=== PATIENT | male | born 1955 | race Caucasian/White ===

== ENCOUNTER 2016-08-28 12:48 | Emergency (ER) | payer MEDICARE ==
[2016-08-28] MEDS ORDERED: KETOROLAC 30 MG/ML VIAL (J1885) As Ordered ONE (15:51)
[2016-08-28 16:10] LABS: BASO # 0.1 K/mm3 (0.0-0.2); BASO % 1.4 % (0.0-1.0); EOS # 0.1 K/mm3 (0.0-0.50); EOS % 1.2 % (0.0-3.0); LARGE UNSTAINED CELL # 0.2 K/mm3 (0.0-0.4); LARGE UNSTAINED CELL % 1.9 % (0.0-4.0); LYMPH # 2.5 K/mm3 (1.5-4.5); LYMPH % 25.4 % (24.0-44.0); MEAN CORPUSCULAR HEMOGLOBIN 31.8 pg (27.0-33.0); MEAN CORPUSCULAR VOLUME 93.4 fl (80.0-96.0); MONO # 0.6 K/mm3 (0.0-0.8); MONO % 6.4 % (0.0-5.0); NEUTROPHILS # 5.7 K/mm3 (1.8-7.7); NEUTROPHILS % 63.7 % (36.0-66.0); PLATELET COUNT, AUTOMATED 270 k/mm3 (150-450); RED CELL DISTRIBUTION WIDTH 12.9 % (11.5-14.5)
[2016-08-28 16:29] LABS: ALBUMIN 4.2 GM/DL (3.2-5.2); ALBUMIN/GLOBULIN RATIO 1.45 (1.00-1.93); ALKALINE PHOSPHATASE 61 U/L (45-117); ALT/SGPT 42 U/L (12-78); ANION GAP 8 MEQ/L (8-16); AST/SGOT 16 U/L (15-37); BILIRUBIN,TOTAL 0.4 MG/DL (0.2-1.0); BLOOD UREA NITROGEN 24 MG/DL (7-18); CALCIUM LEVEL 9.2 MG/DL (8.8-10.2); CARBON DIOXIDE LEVEL 31 MEQ/L (21-32); CHLORIDE LEVEL 102 MEQ/L (98-107); CREATININE FOR GFR 0.93 MG/DL (0.70-1.30); GLOMERULAR FILTRATION RATE > 60.0 (>49); GLUCOSE, FASTING 102 MG/DL (80-110); POTASSIUM SERUM 4.1 MEQ/L (3.5-5.1); SODIUM LEVEL 141 MEQ/L (136-145); TOTAL PROTEIN 7.1 GM/DL (6.4-8.2)
--- NOTE | 2016-08-28 16:53 | REP ---
CT abdomen and pelvis without IV or oral contrast: Renal stone protocol. History: Left flank pain. Diverticulitis left lower quadrant pain. Comparison CT study: 08/29/2015. CT findings: The lung bases are clear. There is no evidence of pleural effusion. Preliminary rn integrated radiograph demonstrates a normal bowel gas pattern. There are clips in right upper quadrant. On axial CT images, the liver is normal in size homogeneous in texture. There are some dystrophic calcifications in the anterior aspect of the spleen unchanged from comparison study. No significant splenic lesion is seen. Gallbladder is surgically absent. No pancreatic abnormality is seen. No adrenal lesion is observed. The kidneys are morphologically intact. No evidence of intrarenal calculus or hydronephrosis on either side. No retroperitoneal mass or adenopathy is seen. Normal caliber aorta is noted. A normal appendix is seen posterior to the cecum. Small and large intestinal bowel loops are normal in the upper abdomen. Pelvic CT images show mild diverticulosis of the distal descending colon. There is no CT evidence of diverticulitis. There is some vas deferens calcification. This may correlate with diabetes. Prostate, seminal vesicles, and urinary bladder are unremarkable. No abdominal wall defect is seen. Bone window settings show no bony destructive lesion. Impression: Mild left colonic diverticulosis. Postcholecystectomy. No acute intra-abdominal abnormality. No urinary tract calculus or hydronephrosis seen. Normal appendix seen. Signed by Danie Willams MD 08/28/2016 06:38 P
--- NOTE | 2016-08-28 17:17 | EDDOCDS ---
Nurse's Notes [facility] Name: Ac Warren Iii Age: 61 yrs Sex: Male : 1955 Arrival Date: 08/28/2016 Time: 12:48 Bed I5 / M5 Private MD: [facility], [place] Diagnosis: Low back pain;Left lower quadrant abdominal tenderness Presentation: 08/28 12:54 Presenting complaint: Patient states: Left low back pain began a week ago "went away" mlb1 for two days pain began again now radiating to left flank. Acute neurological deficits are not present. Mechanism of Injury: No Mechanism of Injury. Adult Sepsis Screening: The patient does not have new or worsening altered mentation. Patient's respiratory rate is less than 22. Systolic blood pressure is greater than 100. Patient has a qSOFA score of 0- Negative Sepsis Screen. Suicide/Homicide risk assessment- the patient denies having any suicidal and/or homicidal ideations and does not present with any other emotional, behavioral or mental health complaints. Status: Patient is not a service learning coordinator or dependent. Transition of care: patient was not received from another setting of care. 12:54 Acuity: DOLLY Level 3 mlb1 12:54 Method Of Arrival: Walkin/Carried/Asstd mlb1 Triage Assessment: 12:56 General: Appears in no apparent distress, Behavior is appropriate for age, cooperative. mlb1 Pain: Location: left low back Pain currently is 7 out of 10 on a pain scale. Pain radiates to left flank. HIV screening NA for this visit Offered previously. Historical: - Allergies: no known allergies; - Home Meds: 1. metformin 500 mg Oral tr24 0.5 tab twice a day 2. lisinopril 5 mg Oral tab 0.5 tab once daily 3. Furosemide 10mg Oral once daily 4. oxycodone 5 mg Oral tab three times a day - PMHx: Chronic Back pain; Diabetes - NIDDM: controlled; Gout; Hypertension; - PSHx: Correction of Bowel obstruction; Cholecystectomy (2003); Exploratory lap; Bowel resection; - Social history: Smoking status: Patient states former smoker of tobacco. No barriers to communication noted, The patient speaks fluent Finnish, Speaks appropriately for age. - Family history: Not pertinent. - : The pt / caregiver states he / she is not on anticoagulants. Home medication list is obtained from the patient. - Exposure Risk Screening:: None identified. Screenin:14 Screening information is obtained from the patient. Fall risk: No risks identified. k Assistance ADL's: requires no assistance with activities of daily living. Abuse/DV Screen: The patient / caregiver reports he/she is: not in a situation that causes fear, pain or injury. Nutritional screening: No deficits noted. Advance Directives: Currently, there is no health care proxy. There is no active DNR order. There is no living will. There is no Power of [employer] Logger. Advance directive information has not previously been placed in an [facility] medical record. home support is adequate. Assessment: 14:54 General: Appears in no apparent distress, well nourished, well groomed, Behavior is ttb appropriate for age, cooperative, pleasant. Neurological: Level of Consciousness is awake, alert. 15:59 General: Appears in no apparent distress, comfortable, Behavior is appropriate for age, ead cooperative. Pain: Location: left flank and left low back Pain currently is 5 out of 10 on a pain scale. Respiratory: Airway is patent Respiratory effort is even, unlabored. GI: Abdomen is obese, Bowel sounds present X 4 quads. Denies nausea, vomiting, pain. Derm: Skin is pink, warm & dry. Musculoskeletal: Reports pain in left flank and back and left low back. 17:14 General: Appears without pain. receptive to discharge. [facility] Vital Signs: 12:50 BP 111 / 66; Pulse 87; Resp 18 S; Temp 96.5(O); Pulse Ox 98% on R/A; Weight 97.07 kg gr2 (R); Height 5 ft. 10 in. (177.80 cm) (R); Pain 7/10; 17:03 BP 119 / 68; Pulse 72; Resp 18; Temp 98.5(TE); Pulse Ox 97% on R/A; Pain 3/10; nb2 12:50 Body Mass Index 30.71 (97.07 kg, 177.80 cm) 2 Vitals: 12:50 Log In Time: August 28, 2016 at 12:50. 2 ED Course: 12:49 Patient visited by Sujatha Aguirre. gr2 12:49 [facility], [place] is Private Physician. gr2 12:49 Patient moved to Waiting gr2 12:53 Patient visited by Sujatha Aguirre. gr2 12:53 Patient visited by Tre Ruff, TEZ. mlb1 12:53 Patient moved to Pre RCE gr2 12:55 Triage Initiated mlb1 12:57 Patient visited by Tre Ruff, TEZ. mlb1 13:48 Urine Culture Sent. cmb 13:48 Urinalysis Sent. cmb 14:49 Patient moved to Triage 3 ttb 14:53 Patient visited by Shanna Chavira RN. ttb 14:54 Patient visited by Shanna Chavira RN. ttb 14:56 [facility]. btw 14:56 Claudia Zelaya MD is Attending Physician. btw 15:11 Patient visited by Mathew Burroughs PA. btw 15:26 Patient moved to I4 / M4 ttb 15:39 [facility] Payment Agreement was scanned into [employer] and attached to record. lg 15:44 Patient name changed from Ac\\S\\W\\S\\Warren\\S\\ to Ac\\S\\W\\S\\Warren Iii. EDMS 15:52 CBC with Diff Sent. ead 15:52 Complete Comphrensive Metabolic Sent. ead 15:52 Inserted saline lock: 20 gauge in right antecubital area and blood collected. The ead patient tolerated the procedure well. 15:58 Patient visited by Dilia Randhawa RN. ead 16:18 Patient moved to I5 / M5 jmk 16:59 Patient visited by Dilia Randhawa RN. ead 16:59 [facility] is Referral Physician. btw 17:03 Patient visited by Zulma Mccabe. nb2 17:13 CT ABD & PELVIS: No Contrast Returned. EDMS 17:14 The patient / caregiver is instructed regarding the plan of care and ED course. jmk 17:14 Discontinued lock intact, bleeding controlled, pressure dressing applied, No jmk redness/swelling at site. No procedures done that require assistance. Administered Medications: 15:57 Drug: ketorolac 15 mg [ketorolac 30 mg/mL (1 mL) injection solution (0.5 mL)] Route: ead IVP; Site: right antecubital; 16:18 Follow up: Response: Pain is decreased jmk Order Results: Lab Order: Urinalysis; SPEC'M 08/28/16 13:46 Test: APPEARANCE, URINE; Value: CLEAR; Range: CLEAR; Status: F Test: COLOR, URINE; Value: YELLOW; Range: YELLOW; Status: F Test: PH,URINE; Value: 5.0; Range: 5.0-9.0; Units: UNITS; Status: F Test: SPECIFIC GRAVITY URINE AUTO; Value: 1.016; Range: 1.002-1.035; Status: F Test: PROTEIN, URINE AUTO; Value: NEGATIVE; Range: NEGATIVE; Units: mg/dL; Status: F Test: GLUCOSE, URINE (UA) AUTO; Value: NEGATIVE; Range: NEGATIVE; Units: mg/dL; Status: F Test: KETONE, URINE AUTO; Value: NEGATIVE; Range: NEGATIVE; Units: mg/dL; Status: F Test: UROBILINOGEN, URINE AUTO; Value: 0.2; Range: 0.0-2.0; Units: mg/dL; Status: F Test: BILIRUBIN, URINE AUTO; Value: NEGATIVE; Range: NEGATIVE; Status: F Test: NITRITE, URINE AUTO; Value: NEGATIVE; Range: NEGATIVE; Status: F Test: LEUKOCYTE ESTERASE, URINE AUTO; Value: NEGATIVE; Range: NEGATIVE; Status: F Test: BLOOD, URINE BLOOD; Value: NEGATIVE; Range: NEGATIVE; Status: F Test: WBC, URINE AUTO; Value: 0; Range: 0-3; Units: /HPF; Status: F Test: RBC, URINE AUTO; Value: 1; Range: 0-3; Units: /HPF; Status: F Test: BACTERIA, URINE AUTO; Value: NEGATIVE; Range: NEGATIVE; Status: F Test: SQUAMOUS EPITHELIAL CELL UR AU; Value: 0; Range: 0-6; Units: /HPF; Status: F Test: MUCUS, URINE; Value: SMALL; Range: NEGATIVE; Status: F Test: HYALINE CAST, URINE AUTO; Value: 3; Range: 0-1; Units: /LPF; Status: F Lab Order: CBC with Diff; SPEC'M 08/28/16 15:50 Test: WHITE BLOOD COUNT; Value: 9.0; Range: 4.0-10.0; Units: K/mm3; Status: F Test: RED BLOOD COUNT; Value: 5.26; Range: 4.30-6.10; Units: M/mm3; Status: F Test: HEMOGLOBIN; Value: 16.7; Range: 14.0-18.0; Units: g/dl; Status: F Test: HEMATOCRIT; Value: 49.1; Range: 42.0-52.0; Units: %; Status: F Test: MEAN CORPUSCULAR VOLUME; Value: 93.4; Range: 80.0-96.0; Units: fl; Status: F Test: MEAN CORPUSCULAR HEMOGLOBIN; Value: 31.8; Range: 27.0-33.0; Units: pg; Status: F Test: MEAN CORPUSCULAR HGB CONC; Value: 34.0; Range: 32.0-36.5; Units: g/dl; Status: F Test: RED CELL DISTRIBUTION WIDTH; Value: 12.9; Range: 11.5-14.5; Units: %; Status: F Test: PLATELET COUNT, AUTOMATED; Value: 270; Range: 150-450; Units: k/mm3; Status: F Test: NEUTROPHILS %; Value: 63.7; Range: 36.0-66.0; Units: %; Status: F Test: LYMPH %; Value: 25.4; Range: 24.0-44.0; Units: %; Status: F Test: MONO %; Value: 6.4; Range: 0.0-5.0; Abnormal: Above high normal; Units: %; Status: F Test: EOS %; Value: 1.2; Range: 0.0-3.0; Units: %; Status: F Test: BASO %; Value: 1.4; Range: 0.0-1.0; Abnormal: Above high normal; Units: %; Status: F Test: LARGE UNSTAINED CELL %; Value: 1.9; Range: 0.0-4.0; Units: %; Status: F Test: NEUTROPHILS #; Value: 5.7; Range: 1.8-7.7; Units: K/mm3; Status: F Test: LYMPH #; Value: 2.5; Range: 1.5-4.5; Units: K/mm3; Status: F Test: MONO #; Value: 0.6; Range: 0.0-0.8; Units: K/mm3; Status: F Test: EOS #; Value: 0.1; Range: 0.0-0.50; Units: K/mm3; Status: F Test: BASO #; Value: 0.1; Range: 0.0-0.2; Units: K/mm3; Status: F Test: LARGE UNSTAINED CELL #; Value: 0.2; Range: 0.0-0.4; Units: K/mm3; Status: F Lab Order: Complete Comphrensive Metabolic; SPEC'M 08/28/16 15:50 Test: GLUCOSE, FASTING; Value: 102; Range: 80-110; Units: MG/DL; Status: F Test: BLOOD UREA NITROGEN; Value: 24; Range: 7-18; Abnormal: Above high normal; Units: MG/DL; Status: F Test: CREATININE FOR GFR; Value: 0.93; Range: 0.70-1.30; Units: MG/DL; Status: F Test: GLOMERULAR FILTRATION RATE; Value: > 60.0; Range: >49; Status: F Test: SODIUM LEVEL; Value: 141; Range: 136-145; Units: MEQ/L; Status: F Test: POTASSIUM SERUM; Value: 4.1; Range: 3.5-5.1; Units: MEQ/L; Status: F Test: CHLORIDE LEVEL; Value: 102; Range: 98-107; Units: MEQ/L; Status: F Test: CARBON DIOXIDE LEVEL; Value: 31; Range: 21-32; Units: MEQ/L; Status: F Test: ANION GAP; Value: 8; Range: 8-16; Units: MEQ/L; Status: F Test: CALCIUM LEVEL; Value: 9.2; Range: 8.8-10.2; Units: MG/DL; Status: F Test: AST/SGOT; Value: 16; Range: 15-37; Units: U/L; Status: F Test: ALT/SGPT; Value: 42; Range: 12-78; Units: U/L; Status: F Test: ALKALINE PHOSPHATASE; Value: 61; Range: 45-117; Units: U/L; Status: F Test: BILIRUBIN,TOTAL; Value: 0.4; Range: 0.2-1.0; Units: MG/DL; Status: F Test: TOTAL PROTEIN; Value: 7.1; Range: 6.4-8.2; Units: GM/DL; Status: F Test: ALBUMIN; Value: 4.2; Range: 3.2-5.2; Units: GM/DL; Status: F Test: ALBUMIN/GLOBULIN RATIO; Value: 1.45; Range: 1.00-1.93; Status: F Test Note: ; Units are mL/min/1.73 m2 Chronic Kidney Disease Staging per NKF: Stage I & II GFR >=60 Normal to Mildly Decreased Stage III GFR 30-59 Moderately Decreased Stage IV GFR 15-29 Severely Decreased Stage V GFR <15 Very Little GFR Left ESRD GFR <15 on JACQUARD FIXER Radiology Order: CT ABD & PELVIS: No Contrast Test: CT ABD & PELVIS: No Contrast REASON FOR EXAMINATION: left FLANK PAIN;Diverticulitis/LLQ Pain; CT abdomen and pelvis without IV or oral contrast: Renal stone protocol.; ; History: Left flank pain. Diverticulitis left lower quadrant pain.; ; Comparison CT study: 08/29/2015.; ; CT findings: The lung bases are clear. There is no evidence of pleural; effusion. Preliminary head inspector and center marker radiograph demonstrates a normal bowel gas pattern.; There are clips in right upper quadrant.; ; On axial CT images, the liver is normal in size homogeneous in texture. There; are some dystrophic calcifications in the anterior aspect of the spleen unchanged; from comparison study. No significant splenic lesion is seen. Gallbladder is; surgically absent. No pancreatic abnormality is seen. No adrenal lesion is; observed. The kidneys are morphologically intact. No evidence of intrarenal; calculus or hydronephrosis on either side. No retroperitoneal mass or adenopathy; is seen. Normal caliber aorta is noted. A normal appendix is seen posterior to; the cecum. Small and large intestinal bowel loops are normal in the upper; abdomen.; ; Pelvic CT images show mild diverticulosis of the distal descending colon. There; is no CT evidence of diverticulitis. There is some vas deferens calcification.; This may correlate with diabetes. Prostate, seminal vesicles, and urinary; bladder are unremarkable. No abdominal wall defect is seen. Bone window; settings show no bony destructive lesion.; ; Impression:; ; Mild left colonic diverticulosis. Postcholecystectomy. No acute intra-abdominal; abnormality. No urinary tract calculus or hydronephrosis seen. Normal appendix; seen.; ; ; ; ; Unreviewed; Outcome: 16:59 Discharge ordered by Provider. btw 17:14 Discharge Assessment: Patient awake, alert and oriented x 3. No cognitive and/or k functional deficits noted. Patient verbalized understanding of disposition instructions. patient administered narcotics - no. The following High Risk Discharge criteria are identified: None. Discharged to home ambulatory. Condition: good. Discharge instructions given to patient, Instructed on discharge instructions, follow up and referral plans. medication usage, no driving heavy equipment, Demonstrated understanding of instructions, medications, Prescriptions given X 2. No special radiology studies were completed. Property :Personal belongings accompany Pt. 17:16 Patient left the ED. [facility] Signatures: Dispatcher [employer] EDMS Fidel Watts,RN RN Jarvis Shen, Tre Guerrero lg RN RN mlb1 Mathew Burroughs PA PA btw Maricarmen Maloney Teresa, RN RN Sujatha Lainez2 Dilia RandhawaRN RN Zulma Hall nb2 BELKIS
--- NOTE | 2016-08-28 17:17 | EDDOCDS ---
Physician Documentation [facility] Name: Ac Warren Iii Age: 61 yrs Sex: Male : 1955 Arrival Date: 08/28/2016 Time: 12:48 Bed I5 / M5 Private MD: [facility] Disposition: 08/28/16 16:59 Discharged to Home/Self Care. Impression: Low back pain, Left lower quadrant abdominal tenderness. - Condition is Stable. - Discharge Instructions: Abdominal Pain, Adult, [id number], Back Pain, Adult, [id number]. - Prescriptions for Robaxin- 750 750 mg Oral Tablet - take 1 tablet by ORAL route every 6 hours As needed; 40 tablet. etodolac 200 mg Oral Capsule - take 1 capsule by ORAL route 3 times per day; 30 capsule. - Medication Reconciliation, Local Pharmacy Hours form. - Follow up: [facility]; When: Call to arrange an appointment; Reason: Further diagnostic work-up, Recheck today's complaints, Continuance of care. Follow up: Emergency Department; When: As soon as possible; Reason: Worsening of conditions. - Problem is new. - Symptoms are unchanged. Historical: - Allergies: no known allergies; - Home Meds: 1. metformin 500 mg Oral tr24 0.5 tab twice a day 2. lisinopril 5 mg Oral tab 0.5 tab once daily 3. Furosemide 10mg Oral once daily 4. oxycodone 5 mg Oral tab three times a day - PMHx: Chronic Back pain; Diabetes - NIDDM: controlled; Gout; Hypertension; - PSHx: Correction of Bowel obstruction; Cholecystectomy (2003); Exploratory lap; Bowel resection; - Social history: Smoking status: Patient states former smoker of tobacco. No barriers to communication noted, The patient speaks fluent French, Speaks appropriately for age. - Family history: Not pertinent. - : The pt / caregiver states he / she is not on anticoagulants. Home medication list is obtained from the patient. - Exposure Risk Screening:: None identified. Vital Signs: 08/28 12:50 BP 111 / 66; Pulse 87; Resp 18 S; Temp 96.5(O); Pulse Ox 98% on R/A; Weight 97.07 kg / gr2 214 lbs (R); Height 5 ft. 10 in. (177.80 cm) (R); Pain 7/10; 17:03 BP 119 / 68; Pulse 72; Resp 18; Temp 98.5(TE); Pulse Ox 97% on R/A; Pain 3/10; nb2 12:50 Body Mass Index 30.71 (97.07 kg, 177.80 cm) gr2 MDM: 13:44 Urinalysis Ordered. EDMS 13:44 Urine Culture Ordered. EDMS 15:18 Urinalysis Reviewed. btw 15:25 IV Saline Lock ordered. btw 15:25 ketorolac 15 mg IVP once ordered. btw 15:26 CBC with Diff Ordered. EDMS 15:26 Complete Comphrensive Metabolic Ordered. EDMS 15:26 CT ABD & PELVIS: No Contrast Ordered. EDMS 15:31 Financial registration complete. lg 15:39 [facility] Payment Agreement was scanned into [employer] and attached to record. lg 16:35 CBC with Diff Reviewed. btw 16:35 Complete Comphrensive Metabolic Reviewed. btw Administered Medications: 15:57 Drug: ketorolac 15 mg [ketorolac 30 mg/mL (1 mL) injection solution (0.5 mL)] Route: ead IVP; Site: right antecubital; 16:18 Follow up: Response: Pain is decreased vaughn Signatures: Dispatcher [employer] EDMS Fidel Watts,RN RN Jarvis Shen, Reg Reg lg Tre Ruff RN RN mlb1 Mathew Burroughs PA PA btw Dilia Randhawa RN RN luis a The chart was reviewed and I authenticate all verbal orders and agree with the evaluation and treatment provided.Attachments: 15:39 [facility] Payment Agreement lg MTDD
--- NOTE | 2016-08-30 18:17 | EDDOCDS ---
Physician Documentation [facility] Name: Ac Warren Iii Age: 61 yrs Sex: Male : 1955 Arrival Date: 08/28/2016 Time: 12:48 Bed I5 / M5 Private MD: [facility] Disposition: 08/28/16 16:59 Discharged to Home/Self Care. Impression: Low back pain, Left lower quadrant abdominal tenderness. - Condition is Stable. - Discharge Instructions: Abdominal Pain, Adult, [id number], Back Pain, Adult, [id number]. - Prescriptions for Robaxin- 750 750 mg Oral Tablet - take 1 tablet by ORAL route every 6 hours As needed; 40 tablet. etodolac 200 mg Oral Capsule - take 1 capsule by ORAL route 3 times per day; 30 capsule. - Medication Reconciliation, Local Pharmacy Hours form. - Follow up: [facility]; When: Call to arrange an appointment; Reason: Further diagnostic work-up, Recheck today's complaints, Continuance of care. Follow up: Emergency Department; When: As soon as possible; Reason: Worsening of conditions. - Problem is new. - Symptoms are unchanged. Historical: - Allergies: no known allergies; - Home Meds: 1. metformin 500 mg Oral tr24 0.5 tab twice a day 2. lisinopril 5 mg Oral tab 0.5 tab once daily 3. Furosemide 10mg Oral once daily 4. oxycodone 5 mg Oral tab three times a day - PMHx: Chronic Back pain; Diabetes - NIDDM: controlled; Gout; Hypertension; - PSHx: Correction of Bowel obstruction; Cholecystectomy (2003); Exploratory lap; Bowel resection; - Social history: Smoking status: Patient states former smoker of tobacco. No barriers to communication noted, The patient speaks fluent Welsh, Speaks appropriately for age. - Family history: Not pertinent. - : The pt / caregiver states he / she is not on anticoagulants. Home medication list is obtained from the patient. - Exposure Risk Screening:: None identified. Vital Signs: 08/28 12:50 BP 111 / 66; Pulse 87; Resp 18 S; Temp 96.5(O); Pulse Ox 98% on R/A; Weight 97.07 kg / gr2 214 lbs (R); Height 5 ft. 10 in. (177.80 cm) (R); Pain 7/10; 17:03 BP 119 / 68; Pulse 72; Resp 18; Temp 98.5(TE); Pulse Ox 97% on R/A; Pain 3/10; nb2 12:50 Body Mass Index 30.71 (97.07 kg, 177.80 cm) gr2 MDM: 13:44 Urinalysis Ordered. EDMS 13:44 Urine Culture Ordered. EDMS 15:18 Urinalysis Reviewed. btw 15:25 IV Saline Lock ordered. btw 15:25 ketorolac 15 mg IVP once ordered. btw 15:26 CBC with Diff Ordered. EDMS 15:26 Complete Comphrensive Metabolic Ordered. EDMS 15:26 CT ABD & PELVIS: No Contrast Ordered. EDMS 15:31 Financial registration complete. lg 15:39 [facility] Payment Agreement was scanned into [employer] and attached to record. lg 16:35 CBC with Diff Reviewed. btw 16:35 Complete Comphrensive Metabolic Reviewed. bt 08/29 10:09 T-Sheet-- Draft Copy was scanned into [employer] and attached to record. gb Administered Medications: 08/28 15:57 Drug: ketorolac 15 mg [ketorolac 30 mg/mL (1 mL) injection solution (0.5 mL)] Route: ead IVP; Site: right antecubital; 16:18 Follow up: Response: Pain is decreased vaughn Signatures: Dispatcher [employer] EDMS Fidel Watts RN RN jmCatina Del Castillo, Reg Reg gb Jarvis Villalobos, Reg Reg lg Tre Ruff RN RN mlb1 [place], Brandon, PA PA btw Dilia Randhawa,TEZ gunn The chart was reviewed and I authenticate all verbal orders and agree with the evaluation and treatment provided.Attachments: 15:39 [facility] Payment Agreement lg 08/29 10:09 T-Sheet-- Draft Copy gb Chart Complete MTDD
--- NOTE | 2016-08-30 18:17 | EDDOCDS ---
Physician Documentation [facility] Name: Ac Warren Iii Age: 61 yrs Sex: Male : 1955 Arrival Date: 08/28/2016 Time: 12:48 Bed I5 / M5 Private MD: [facility] Disposition: 08/28/16 16:59 Discharged to Home/Self Care. Impression: Low back pain, Left lower quadrant abdominal tenderness. - Condition is Stable. - Discharge Instructions: Abdominal Pain, Adult, Hxqs-of-Hfju, Back Pain, Adult, Okzi-lu-Nbrg. - Prescriptions for Robaxin- 750 750 mg Oral Tablet - take 1 tablet by ORAL route every 6 hours As needed; 40 tablet. etodolac 200 mg Oral Capsule - take 1 capsule by ORAL route 3 times per day; 30 capsule. - Medication Reconciliation, Local Pharmacy Hours form. - Follow up: [facility]; When: Call to arrange an appointment; Reason: Further diagnostic work-up, Recheck today's complaints, Continuance of care. Follow up: Emergency Department; When: As soon as possible; Reason: Worsening of conditions. - Problem is new. - Symptoms are unchanged. Historical: - Allergies: no known allergies; - Home Meds: 1. metformin 500 mg Oral tr24 0.5 tab twice a day 2. lisinopril 5 mg Oral tab 0.5 tab once daily 3. Furosemide 10mg Oral once daily 4. oxycodone 5 mg Oral tab three times a day - PMHx: Chronic Back pain; Diabetes - NIDDM: controlled; Gout; Hypertension; - PSHx: Correction of Bowel obstruction; Cholecystectomy (2003); Exploratory lap; Bowel resection; - Social history: Smoking status: Patient states former smoker of tobacco. No barriers to communication noted, The patient speaks fluent Maori, Speaks appropriately for age. - Family history: Not pertinent. - : The pt / caregiver states he / she is not on anticoagulants. Home medication list is obtained from the patient. - Exposure Risk Screening:: None identified. Vital Signs: 08/28 12:50 BP 111 / 66; Pulse 87; Resp 18 S; Temp 96.5(O); Pulse Ox 98% on R/A; Weight 97.07 kg / gr2 214 lbs (R); Height 5 ft. 10 in. (177.80 cm) (R); Pain 7/10; 17:03 BP 119 / 68; Pulse 72; Resp 18; Temp 98.5(TE); Pulse Ox 97% on R/A; Pain 3/10; nb2 12:50 Body Mass Index 30.71 (97.07 kg, 177.80 cm) gr2 MDM: 13:44 Urinalysis Ordered. EDMS 13:44 Urine Culture Ordered. EDMS 15:18 Urinalysis Reviewed. btw 15:25 IV Saline Lock ordered. btw 15:25 ketorolac 15 mg IVP once ordered. btw 15:26 CBC with Diff Ordered. EDMS 15:26 Complete Comphrensive Metabolic Ordered. EDMS 15:26 CT ABD & PELVIS: No Contrast Ordered. EDMS 15:31 Financial registration complete. lg 15:39 [facility] Payment Agreement was scanned into [employer] and attached to record. lg 16:35 CBC with Diff Reviewed. btw 16:35 Complete Comphrensive Metabolic Reviewed. bt 08/29 10:09 T-Sheet-- Draft Copy was scanned into [employer] and attached to record. gb Administered Medications: 08/28 15:57 Drug: ketorolac 15 mg [ketorolac 30 mg/mL (1 mL) injection solution (0.5 mL)] Route: ead IVP; Site: right antecubital; 16:18 Follow up: Response: Pain is decreased vaughn Signatures: Dispatcher MedHost EDMS Fidel Watts RN RN jmCatina Del Castillo, Reg Reg gb Jarvis Villalobos, Reg Reg lg Tre Ruff RN RN mlb1 Wolfenden, Brandon, PA PA btw Dilia Randhawa,TEZ gunn The chart was reviewed and I authenticate all verbal orders and agree with the evaluation and treatment provided.Attachments: 15:39 [facility] Payment Agreement lg 08/29 10:09 T-Sheet-- Draft Copy gb Chart Complete MTDD
--- NOTE | 2016-08-30 18:17 | EDDOCDS ---
Nurse's Notes [facility] Name: Ac Warren Iii Age: 61 yrs Sex: Male : 1955 Arrival Date: 08/28/2016 Time: 12:48 Bed I5 / M5 Private MD: [facility] Diagnosis: Low back pain;Left lower quadrant abdominal tenderness Presentation: 08/28 12:54 Presenting complaint: Patient states: Left low back pain began a week ago "went away" mlb1 for two days pain began again now radiating to left flank. Acute neurological deficits are not present. Mechanism of Injury: No Mechanism of Injury. Adult Sepsis Screening: The patient does not have new or worsening altered mentation. Patient's respiratory rate is less than 22. Systolic blood pressure is greater than 100. Patient has a qSOFA score of 0- Negative Sepsis Screen. Suicide/Homicide risk assessment- the patient denies having any suicidal and/or homicidal ideations and does not present with any other emotional, behavioral or mental health complaints. Status: Patient is not a home service consultant or dependent. Transition of care: patient was not received from another setting of care. 12:54 Acuity: DOLLY Level 3 mlb1 12:54 Method Of Arrival: Walkin/Carried/Asstd mlb1 Triage Assessment: 12:56 General: Appears in no apparent distress, Behavior is appropriate for age, cooperative. mlb1 Pain: Location: left low back Pain currently is 7 out of 10 on a pain scale. Pain radiates to left flank. HIV screening NA for this visit Offered previously. Historical: - Allergies: no known allergies; - Home Meds: 1. metformin 500 mg Oral tr24 0.5 tab twice a day 2. lisinopril 5 mg Oral tab 0.5 tab once daily 3. Furosemide 10mg Oral once daily 4. oxycodone 5 mg Oral tab three times a day - PMHx: Chronic Back pain; Diabetes - NIDDM: controlled; Gout; Hypertension; - PSHx: Correction of Bowel obstruction; Cholecystectomy (2003); Exploratory lap; Bowel resection; - Social history: Smoking status: Patient states former smoker of tobacco. No barriers to communication noted, The patient speaks fluent Bermudian, Speaks appropriately for age. - Family history: Not pertinent. - : The pt / caregiver states he / she is not on anticoagulants. Home medication list is obtained from the patient. - Exposure Risk Screening:: None identified. Screenin:14 Screening information is obtained from the patient. Fall risk: No risks identified. k Assistance ADL's: requires no assistance with activities of daily living. Abuse/DV Screen: The patient / caregiver reports he/she is: not in a situation that causes fear, pain or injury. Nutritional screening: No deficits noted. Advance Directives: Currently, there is no health care proxy. There is no active DNR order. There is no living will. There is no Power of Hospital Liaison. Advance directive information has not previously been placed in an [facility] medical record. home support is adequate. Assessment: 14:54 General: Appears in no apparent distress, well nourished, well groomed, Behavior is ttb appropriate for age, cooperative, pleasant. Neurological: Level of Consciousness is awake, alert. 15:59 General: Appears in no apparent distress, comfortable, Behavior is appropriate for age, ead cooperative. Pain: Location: left flank and left low back Pain currently is 5 out of 10 on a pain scale. Respiratory: Airway is patent Respiratory effort is even, unlabored. GI: Abdomen is obese, Bowel sounds present X 4 quads. Denies nausea, vomiting, pain. Derm: Skin is pink, warm & dry. Musculoskeletal: Reports pain in left flank and back and left low back. 17:14 General: Appears without pain. receptive to discharge. [facility] Vital Signs: 12:50 BP 111 / 66; Pulse 87; Resp 18 S; Temp 96.5(O); Pulse Ox 98% on R/A; Weight 97.07 kg gr2 (R); Height 5 ft. 10 in. (177.80 cm) (R); Pain 7/10; 17:03 BP 119 / 68; Pulse 72; Resp 18; Temp 98.5(TE); Pulse Ox 97% on R/A; Pain 3/10; nb2 12:50 Body Mass Index 30.71 (97.07 kg, 177.80 cm) 2 Vitals: 12:50 Log In Time: August 28, 2016 at 12:50. 2 ED Course: 12:49 Patient visited by Sujatha Aguirre. gr2 12:49 [facility] is Private Physician. gr2 12:49 Patient moved to Waiting gr2 12:53 Patient visited by Sujatha Aguirre. gr2 12:53 Patient visited by Tre Ruff, TEZ. mlb1 12:53 Patient moved to Pre RCE gr2 12:55 Triage Initiated mlb1 12:57 Patient visited by Tre Ruff, TEZ. mlb1 13:48 Urine Culture Sent. cmb 13:48 Urinalysis Sent. cmb 14:49 Patient moved to Triage 3 ttb 14:53 Patient visited by Shanna Chavira RN. ttb 14:54 Patient visited by Shanna Chavira RN. ttb 14:56 [facility] btw 14:56 Claudia Zelaya MD is Attending Physician. btw 15:11 Patient visited by Mathew Burroughs PA. btw 15:26 Patient moved to I4 / M4 ttb 15:39 [facility] Payment Agreement was scanned into [employer] and attached to record. lg 15:44 Patient name changed from Ac\\S\\W\\S\\Warren\\S\\ to Ca\\S\\W\\S\\Warren Iii. EDMS 15:52 CBC with Diff Sent. ead 15:52 Complete Comphrensive Metabolic Sent. ead 15:52 Inserted saline lock: 20 gauge in right antecubital area and blood collected. The ead patient tolerated the procedure well. 15:58 Patient visited by Dilia Randhawa RN. ead 16:18 Patient moved to I5 / M5 jmk 16:59 Patient visited by Dilia Randhawa RN. ead 16:59 [facility] is Referral Physician. btw 17:03 Patient visited by Zulma Mccabe. nb2 17:13 CT ABD & PELVIS: No Contrast Returned. EDMS 17:14 The patient / caregiver is instructed regarding the plan of care and ED course. jmk 17:14 Discontinued lock intact, bleeding controlled, pressure dressing applied, No jmk redness/swelling at site. No procedures done that require assistance. 08/29 10:09 T-Sheet-- Draft Copy was scanned into [employer] and attached to record. gb Administered Medications: 08/28 15:57 Drug: ketorolac 15 mg [ketorolac 30 mg/mL (1 mL) injection solution (0.5 mL)] Route: ead IVP; Site: right antecubital; 16:18 Follow up: Response: Pain is decreased jmk Order Results: Lab Order: Urinalysis; SPEC'M 08/28/16 13:46 Test: APPEARANCE, URINE; Value: CLEAR; Range: CLEAR; Status: F Test: COLOR, URINE; Value: YELLOW; Range: YELLOW; Status: F Test: PH,URINE; Value: 5.0; Range: 5.0-9.0; Units: UNITS; Status: F Test: SPECIFIC GRAVITY URINE AUTO; Value: 1.016; Range: 1.002-1.035; Status: F Test: PROTEIN, URINE AUTO; Value: NEGATIVE; Range: NEGATIVE; Units: mg/dL; Status: F Test: GLUCOSE, URINE (UA) AUTO; Value: NEGATIVE; Range: NEGATIVE; Units: mg/dL; Status: F Test: KETONE, URINE AUTO; Value: NEGATIVE; Range: NEGATIVE; Units: mg/dL; Status: F Test: UROBILINOGEN, URINE AUTO; Value: 0.2; Range: 0.0-2.0; Units: mg/dL; Status: F Test: BILIRUBIN, URINE AUTO; Value: NEGATIVE; Range: NEGATIVE; Status: F Test: NITRITE, URINE AUTO; Value: NEGATIVE; Range: NEGATIVE; Status: F Test: LEUKOCYTE ESTERASE, URINE AUTO; Value: NEGATIVE; Range: NEGATIVE; Status: F Test: BLOOD, URINE BLOOD; Value: NEGATIVE; Range: NEGATIVE; Status: F Test: WBC, URINE AUTO; Value: 0; Range: 0-3; Units: /HPF; Status: F Test: RBC, URINE AUTO; Value: 1; Range: 0-3; Units: /HPF; Status: F Test: BACTERIA, URINE AUTO; Value: NEGATIVE; Range: NEGATIVE; Status: F Test: SQUAMOUS EPITHELIAL CELL UR AU; Value: 0; Range: 0-6; Units: /HPF; Status: F Test: MUCUS, URINE; Value: SMALL; Range: NEGATIVE; Status: F Test: HYALINE CAST, URINE AUTO; Value: 3; Range: 0-1; Units: /LPF; Status: F Lab Order: Urine Culture; SPEC'M 08/28/16 13:46 Test: URINE CULTURE; Value: <EXTERNAL COMMENT eCWMed> FULL REPORT IN LAB NOTES (eCW and Medent).; Status: F Test: URINE CULTURE; Value: URINE CULTURE RESULT NO GROWTH; Status: F Lab Order: CBC with Diff; SPEC'M 08/28/16 15:50 Test: WHITE BLOOD COUNT; Value: 9.0; Range: 4.0-10.0; Units: K/mm3; Status: F Test: RED BLOOD COUNT; Value: 5.26; Range: 4.30-6.10; Units: M/mm3; Status: F Test: HEMOGLOBIN; Value: 16.7; Range: 14.0-18.0; Units: g/dl; Status: F Test: HEMATOCRIT; Value: 49.1; Range: 42.0-52.0; Units: %; Status: F Test: MEAN CORPUSCULAR VOLUME; Value: 93.4; Range: 80.0-96.0; Units: fl; Status: F Test: MEAN CORPUSCULAR HEMOGLOBIN; Value: 31.8; Range: 27.0-33.0; Units: pg; Status: F Test: MEAN CORPUSCULAR HGB CONC; Value: 34.0; Range: 32.0-36.5; Units: g/dl; Status: F Test: RED CELL DISTRIBUTION WIDTH; Value: 12.9; Range: 11.5-14.5; Units: %; Status: F Test: PLATELET COUNT, AUTOMATED; Value: 270; Range: 150-450; Units: k/mm3; Status: F Test: NEUTROPHILS %; Value: 63.7; Range: 36.0-66.0; Units: %; Status: F Test: LYMPH %; Value: 25.4; Range: 24.0-44.0; Units: %; Status: F Test: MONO %; Value: 6.4; Range: 0.0-5.0; Abnormal: Above high normal; Units: %; Status: F Test: EOS %; Value: 1.2; Range: 0.0-3.0; Units: %; Status: F Test: BASO %; Value: 1.4; Range: 0.0-1.0; Abnormal: Above high normal; Units: %; Status: F Test: LARGE UNSTAINED CELL %; Value: 1.9; Range: 0.0-4.0; Units: %; Status: F Test: NEUTROPHILS #; Value: 5.7; Range: 1.8-7.7; Units: K/mm3; Status: F Test: LYMPH #; Value: 2.5; Range: 1.5-4.5; Units: K/mm3; Status: F Test: MONO #; Value: 0.6; Range: 0.0-0.8; Units: K/mm3; Status: F Test: EOS #; Value: 0.1; Range: 0.0-0.50; Units: K/mm3; Status: F Test: BASO #; Value: 0.1; Range: 0.0-0.2; Units: K/mm3; Status: F Test: LARGE UNSTAINED CELL #; Value: 0.2; Range: 0.0-0.4; Units: K/mm3; Status: F Lab Order: Complete Comphrensive Metabolic; SPEC'M 08/28/16 15:50 Test: GLUCOSE, FASTING; Value: 102; Range: 80-110; Units: MG/DL; Status: F Test: BLOOD UREA NITROGEN; Value: 24; Range: 7-18; Abnormal: Above high normal; Units: MG/DL; Status: F Test: CREATININE FOR GFR; Value: 0.93; Range: 0.70-1.30; Units: MG/DL; Status: F Test: GLOMERULAR FILTRATION RATE; Value: > 60.0; Range: >49; Status: F Test: SODIUM LEVEL; Value: 141; Range: 136-145; Units: MEQ/L; Status: F Test: POTASSIUM SERUM; Value: 4.1; Range: 3.5-5.1; Units: MEQ/L; Status: F Test: CHLORIDE LEVEL; Value: 102; Range: 98-107; Units: MEQ/L; Status: F Test: CARBON DIOXIDE LEVEL; Value: 31; Range: 21-32; Units: MEQ/L; Status: F Test: ANION GAP; Value: 8; Range: 8-16; Units: MEQ/L; Status: F Test: CALCIUM LEVEL; Value: 9.2; Range: 8.8-10.2; Units: MG/DL; Status: F Test: AST/SGOT; Value: 16; Range: 15-37; Units: U/L; Status: F Test: ALT/SGPT; Value: 42; Range: 12-78; Units: U/L; Status: F Test: ALKALINE PHOSPHATASE; Value: 61; Range: 45-117; Units: U/L; Status: F Test: BILIRUBIN,TOTAL; Value: 0.4; Range: 0.2-1.0; Units: MG/DL; Status: F Test: TOTAL PROTEIN; Value: 7.1; Range: 6.4-8.2; Units: GM/DL; Status: F Test: ALBUMIN; Value: 4.2; Range: 3.2-5.2; Units: GM/DL; Status: F Test: ALBUMIN/GLOBULIN RATIO; Value: 1.45; Range: 1.00-1.93; Status: F Test Note: ; Units are mL/min/1.73 m2 Chronic Kidney Disease Staging per NKF: Stage I & II GFR >=60 Normal to Mildly Decreased Stage III GFR 30-59 Moderately Decreased Stage IV GFR 15-29 Severely Decreased Stage V GFR <15 Very Little GFR Left ESRD GFR <15 on OFFICE SERVICES ASSISTANT Radiology Order: CT ABD & PELVIS: No Contrast Test: CT ABD & PELVIS: No Contrast REASON FOR EXAMINATION: left FLANK PAIN;Diverticulitis/LLQ Pain; CT abdomen and pelvis without IV or oral contrast: Renal stone protocol.; ; History: Left flank pain. Diverticulitis left lower quadrant pain.; ; Comparison CT study: 08/29/2015.; ; CT findings: The lung bases are clear. There is no evidence of pleural; effusion. Preliminary importer exporter radiograph demonstrates a normal bowel gas pattern.; There are clips in right upper quadrant.; ; On axial CT images, the liver is normal in size homogeneous in texture. There; are some dystrophic calcifications in the anterior aspect of the spleen unchanged; from comparison study. No significant splenic lesion is seen. Gallbladder is; surgically absent. No pancreatic abnormality is seen. No adrenal lesion is; observed. The kidneys are morphologically intact. No evidence of intrarenal; calculus or hydronephrosis on either side. No retroperitoneal mass or adenopathy; is seen. Normal caliber aorta is noted. A normal appendix is seen posterior to; the cecum. Small and large intestinal bowel loops are normal in the upper; abdomen.; ; Pelvic CT images show mild diverticulosis of the distal descending colon. There; is no CT evidence of diverticulitis. There is some vas deferens calcification.; This may correlate with diabetes. Prostate, seminal vesicles, and urinary; bladder are unremarkable. No abdominal wall defect is seen. Bone window; settings show no bony destructive lesion.; ; Impression:; ; Mild left colonic diverticulosis. Postcholecystectomy. No acute intra-abdominal; abnormality. No urinary tract calculus or hydronephrosis seen. Normal appendix; seen.; ; ; Signed by; Danie Willams MD 08/28/2016 06:38 P; Outcome: 16:59 Discharge ordered by Provider. btw 17:14 Discharge Assessment: Patient awake, alert and oriented x 3. No cognitive and/or jmk functional deficits noted. Patient verbalized understanding of disposition instructions. patient administered narcotics - no. The following High Risk Discharge criteria are identified: None. Discharged to home ambulatory. Condition: good. Discharge instructions given to patient, Instructed on discharge instructions, follow up and referral plans. medication usage, no driving heavy equipment, Demonstrated understanding of instructions, medications, Prescriptions given X 2. No special radiology studies were completed. Property :Personal belongings accompany Pt. 17:16 Patient left the ED. vaughn Signatures: Dispatcher MedHost EDMS Fidel Watts,RN RN Catina Maldonado, Reg Reg gb Jarvis Villalobos, Reg Reg lg Tre Ruff RN RN mlb1 Mathew Burroughs PA PA btMaricarmen Kate Teresa, RN RN ttb Raymond, Gainslee gr2 Dilia Randhawa RN RN ead Baart, Nicole nb2 Chart Complete MTDD
== END 2016-08-28 17:16 | disposition home or self-care (01) ==
LOC: M ED 12:48
DX: R10.32 Left lower quadrant pain (principal); M54.5 Low back pain; R11.0 Nausea; I10 Essential (primary) hypertension; E11.9 Type 2 diabetes mellitus without complications; M10.9 Gout, unspecified; Z79.899 Other long term (current) drug therapy; Z79.84 Long term (current) use of oral hypoglycemic drugs; Z79.891 Long term (current) use of opiate analgesic; Z87.891 Personal history of nicotine dependence
CPT/HCPCS: 36415; 74176; 80053; 81001; 85025; 87086; 96374; 99284; J1885

== ENCOUNTER 2017-04-01 20:48 | Emergency (ER) | payer MEDICARE ==
[~2017-04-01] VITALS: Ht 177.8 cm; Wt 97.7 kg
[2017-04-01] MEDS ORDERED: NITROGLYCERIN 0.4 MG SUBL TABLET SL STA (21:57)
[2017-04-01] MEDS ORDERED: ASPIRIN 81 MG CHEW TABLET PO ONE (22:15)
[2017-04-01 22:25] LABS: BASO # 0.1 K/mm3 (0.0-0.2); BASO % 1.3 % (0.0-1.0); EOS # 0.1 K/mm3 (0.0-0.50); EOS % 1.6 % (0.0-3.0); LARGE UNSTAINED CELL # 0.2 K/mm3 (0.0-0.4); LARGE UNSTAINED CELL % 2.7 % (0.0-4.0); LYMPH # 1.9 K/mm3 (1.5-4.5); MONO # 0.4 K/mm3 (0.0-0.8); MONO % 6.8 % (0.0-5.0); NEUTROPHILS # 3.1 K/mm3 (1.8-7.7); NEUTROPHILS % 54.6 % (36.0-66.0); PLATELET COUNT, AUTOMATED 286 k/mm3 (150-450); WHITE BLOOD COUNT 5.8 K/mm3 (4.0-10.0)
[2017-04-01 22:27] LABS: MEAN CORPUSCULAR VOLUME 93.7 fl (80.0-96.0)
[2017-04-01 22:28] LABS: INR 0.97; MEAN CORPUSCULAR HEMOGLOBIN 33.9 pg (27.0-33.0); MEAN CORPUSCULAR HGB CONC 36.1 g/dl (32.0-36.5); RED CELL DISTRIBUTION WIDTH 12.3 % (11.5-14.5)
--- NOTE | 2017-04-01 22:36 | REP ---
Clinical: Chest pain . Comparison: 11/08/2009 . Findings: The mediastinum and cardiac silhouette are stable and within normal limits for portable technique. The lung michele demonstrate chronic interstitial changes without acute consolidation, effusion, or pneumothorax. Skeletal structures are intact. Impression: No acute cardiopulmonary process appreciated. Signed by Aniket Zuluaga MD 04/01/2017 10:28 P
[2017-04-01 22:49] LABS: ALBUMIN 3.6 GM/DL (3.2-5.2); ALKALINE PHOSPHATASE 56 U/L (45-117); ALT/SGPT 40 U/L (12-78); ANION GAP 7 MEQ/L (8-16); AST/SGOT 18 U/L (15-37); BILIRUBIN,DIRECT < 0.1 MG/DL (0.0-0.2); BILIRUBIN,TOTAL 0.4 MG/DL (0.2-1.0); BLOOD UREA NITROGEN 17 MG/DL (7-18); CALCIUM LEVEL 9.2 MG/DL (8.8-10.2); CARBON DIOXIDE LEVEL 32 MEQ/L (21-32); CHLORIDE LEVEL 101 MEQ/L (98-107); CREATININE FOR GFR 0.88 MG/DL (0.70-1.30); GLOMERULAR FILTRATION RATE > 60.0 (>49); GLUCOSE, FASTING 100 MG/DL (80-110); POTASSIUM SERUM 4.4 MEQ/L (3.5-5.1); SODIUM LEVEL 140 MEQ/L (136-145); TOTAL PROTEIN 6.6 GM/DL (6.4-8.2)
[2017-04-01] MEDS ORDERED: ASPI81TA85 PO (23:54)
[2017-04-01 23:59] VITALS: BP 118/72
--- NOTE | 2017-04-03 09:06 | ECGEPIP ---
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
== END 2017-04-02 00:37 | disposition home or self-care (01) ==
LOC: M ED 20:48
DX: R07.89 Other chest pain (principal); R06.02 Shortness of breath; E11.9 Type 2 diabetes mellitus without complications; M54.9 Dorsalgia, unspecified; G89.29 Other chronic pain; Z87.891 Personal history of nicotine dependence
CPT/HCPCS: 36415; 71010; 80048; 80076; 82550; 82553; 83690; 83880; 84439; 84443; 84484; 85025; 85379; 85610; 85730; 93005; 93041; 94760; 99284; G0480

== ENCOUNTER 2017-06-28 17:40 | Emergency (ER) | payer MEDICARE ==
[~2017-06-28 17:40] MED LIST: ASPI81TA85 PO
[2017-06-28] MEDS ORDERED: INDO50CA PO (17:52)
[2017-06-28] MEDS ORDERED: OXYC-403 PO (17:52)
[2017-06-28] MEDS ORDERED: LISI-542 PO (17:52)
[2017-06-28] MEDS ORDERED: FURO40TA2 PO (17:52)
[2017-06-28] MEDS ORDERED: METF500T13 PO (17:52)
[2017-06-28] MEDS ORDERED: ASPIRIN 81 MG CHEW TABLET PO ONE (18:15)
[2017-06-28 18:18] LABS: BASO % 0.3 % (0.0-1.0); EOS # 0.1 10^3/uL (0.0-0.50); EOS % 1.5 % (0.0-3.0); IMMATURE GRANULOCYTE % 0.3 % (0-0); LYMPH % 26.7 % (24.0-44.0); MEAN CORPUSCULAR HEMOGLOBIN 33.6 pg (27.0-33.0); MEAN CORPUSCULAR HGB CONC 36.1 g/dl (32.0-36.5); MONO # 0.7 10^3/uL (0.0-0.8); MONO % 9.7 % (0.0-5.0); NEUTROPHILS # 4.6 10^3/uL (1.8-7.7); NEUTROPHILS % 61.5 % (36.0-66.0); PLATELET COUNT, AUTOMATED 224 10^3/uL (150-450); RED CELL DISTRIBUTION WIDTH 11.9 % (11.5-14.5); WHITE BLOOD COUNT 7.5 10^3/uL (4.0-10.0)
[2017-06-28 18:34] LABS: INR 0.88
--- NOTE | 2017-06-28 18:40 | REPUSA ---
Clinical history: Pain, swelling. Findings: The common femoral, superficial femoral, popliteal, and other deep venous structures compre ss normally and demonstrate normal color Doppler flow. Normal venous waveforms with augmentation are seen. Impression: No evidence of deep vein thrombosis in the femoral popliteal venous system.
[2017-06-28 18:42] LABS: ALBUMIN 3.5 GM/DL (3.2-5.2); ALBUMIN/GLOBULIN RATIO 1.25 (1.00-1.93); ALKALINE PHOSPHATASE 64 U/L (45-117); ALT/SGPT 45 U/L (12-78); ANION GAP 6 MEQ/L (8-16); AST/SGOT 21 U/L (7-37); BILIRUBIN,DIRECT < 0.1 MG/DL (0.0-0.2); BILIRUBIN,TOTAL 0.2 MG/DL (0.2-1.0); BLOOD UREA NITROGEN 19 MG/DL (7-18); CALCIUM LEVEL 8.6 MG/DL (8.8-10.2); CARBON DIOXIDE LEVEL 32 MEQ/L (21-32); CHLORIDE LEVEL 100 MEQ/L (98-107); CREATININE FOR GFR 1.33 MG/DL (0.70-1.30); GLUCOSE, FASTING 139 MG/DL (80-110); POTASSIUM SERUM 3.7 MEQ/L (3.5-5.1); SODIUM LEVEL 138 MEQ/L (136-145); TOTAL PROTEIN 6.3 GM/DL (6.4-8.2)
[2017-06-28] MEDS ORDERED: ISOVUE-370 76% 100ML VIAL (Q9967) As Ordered ONE (18:55)
--- NOTE | 2017-06-28 18:58 | REP ---
Clinical: Acute chest pain . Comparison: 04/01/2017 . Technique: PA and lateral. Findings: The mediastinum and cardiac silhouette are normal. The lung michele are clear and without acute consolidation, effusion, or pneumothorax. The skeletal structures are intact and normal. Impression: 1. No acute cardiopulmonary process. Signed by Aniket Zuluaga MD 06/28/2017 06:50 P
--- NOTE | 2017-06-28 19:38 | REP ---
Clinical: Acute chest pain and shortness of breath. Technique: Axial contrast enhanced images from the thoracic inlet to the upper abdomen using 100 ml Isovue 370 intravenous contrast material with MIP coronal and sagittal re-formations. Findings: Satisfactory enhancement of the pulmonary vasculature is achieved and no filling defects are identified to suggest pulmonary embolus. Thoracic aorta is normal caliber without aneurysm or dissection. Heart and pericardium are normal. Bilateral lung michele are well aerated and clear without acute pulmonary parenchymal consolidation or atelectasis. No nodule or mass lesion. No pleural effusion/reaction. No pneumothorax. No adenopathy. Impression: No evidence for pulmonary embolus. No acute pleuroparenchymal or mediastinal process. Signed by Aniket Zuluaga MD 06/28/2017 07:29 P
[2017-06-29 00:47] VITALS: BP 109/64
--- NOTE | 2017-06-30 08:36 | ECGEPIP ---
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
--- NOTE | 2017-06-30 08:43 | ECGEPIP ---
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
== END 2017-06-29 00:59 | disposition home or self-care (01) ==
LOC: M ED 17:40
DX: R06.00 Dyspnea, unspecified (principal); R07.9 Chest pain, unspecified; E11.9 Type 2 diabetes mellitus without complications; I10 Essential (primary) hypertension; E78.5 Hyperlipidemia, unspecified; M10.9 Gout, unspecified; M51.9 Unspecified thoracic, thoracolumbar and lumbosacral intervertebral disc disorder; Z87.891 Personal history of nicotine dependence; Z79.84 Long term (current) use of oral hypoglycemic drugs; Z79.82 Long term (current) use of aspirin; Z79.899 Other long term (current) drug therapy
CPT/HCPCS: 71020; 71275; 80048; 80076; 82550; 82553; 84484; 85025; 85610; 85730; 93005; 93041; 93970; 94760; 99285; Q9967

== ENCOUNTER → 2022-02-08 | Outpatient (CLI) | payer MEDICARE, OTHER ==
[~2022-02-08] MED LIST changes: -ASPI81TA85 PO; +ASPI81TA86 PO; +FURO40TA2 PO; +INDO50CA91 PO; +LISI5TAB11 PO; +METF500T13 PO; +OXYC-403 PO
== END ==
LOC: M PLARAD 10:43
PROVIDERS: ATTEND Family Medicine
DX: M54.2 Cervicalgia (principal)

== ENCOUNTER → 2022-07-02 | Outpatient (CLI) | payer OTHER, MEDICARE ==
[2022-07-02 10:44] LABS: BLOOD UREA NITROGEN 17 MG/DL (9-23)
[2022-07-02 10:46] LABS: CREATININE FOR GFR 0.78 MG/DL (0.70-1.30); GLOMERULAR FILTRATION RATE > 60.0 (>49)
== END ==
LOC: M LAB 08:52
PROVIDERS: ATTEND Surgery
DX: C18.5 Malignant neoplasm of splenic flexure (principal)

== ENCOUNTER → 2022-07-11 | Outpatient (CLI) | payer MEDICARE ==
[~2022-07-11] MED LIST changes: +GASTROGRAFIN SOLUTION 30ML As Ordered ONE; +ISOVUE-370 76% 100ML VIAL As Ordered ONE
== END ==
LOC: M RAD 10:37
PROVIDERS: ATTEND Surgery
DX: C18.5 Malignant neoplasm of splenic flexure (principal)
CPT/HCPCS: 74178; Q9963; Q9967

== ENCOUNTER 2024-06-26 20:51 | Emergency (ER) | payer OTHER, MEDICARE ==
[~2024-06-26] VITALS: Ht 177.8 cm; Wt 78.6 kg
[~2024-06-26 20:51] MED LIST changes: -GASTROGRAFIN SOLUTION 30ML As Ordered ONE; -ISOVUE-370 76% 100ML VIAL As Ordered ONE; -OXYC-403 PO; +OXYC-673 PO
[2024-06-26 22:12] LABS: BASO % 0.2 % (0.0-1.0); EOS % 0.7 % (0.0-3.0); HEMATOCRIT 36.2 % (42.0-52.0); HEMOGLOBIN 12.3 g/dl (13.5-17.5); LYMPH # 0.6 10^3/uL (1.5-5.0); LYMPH % 14.7 % (24.0-44.0); MEAN CORPUSCULAR HEMOGLOBIN 30.1 pg (27.0-33.0); MEAN CORPUSCULAR VOLUME 88.5 fl (80.0-96.0); MONO # 0.6 10^3/uL (0.0-0.8); MONO % 13.2 % (2.0-8.0); PLATELET COUNT, AUTOMATED 312 10^3/uL (150-450); RED BLOOD COUNT 4.09 10^6/uL (4.30-6.10); WHITE BLOOD COUNT 4.2 10^3/uL (4.0-10.0)
[2024-06-26 22:31] LABS: LIPASE 32 U/L (12-53)
[2024-06-26 22:33] LABS: ALBUMIN 3.2 G/DL (3.2-5.2); ALKALINE PHOSPHATASE 56 U/L (40-129); ALT/SGPT 14 U/L (7.0-40); AST/SGOT 10 U/L (<34); BILIRUBIN,DIRECT 0.3 MG/DL (<0.4); BILIRUBIN,TOTAL 0.8 MG/DL (0.3-1.2); BLOOD UREA NITROGEN 13 MG/DL (9-23); CALCIUM LEVEL 8.2 MG/DL (8.3-10.6); CARBON DIOXIDE LEVEL 28 MMOL/L (20-31); CHLORIDE LEVEL 104 MMOL/L (98-107); CREATININE FOR GFR 0.86 MG/DL (0.70-1.30); GLOMERULAR FILTRATION RATE > 60.0 (>49); GLUCOSE, FASTING 153 MG/DL (74-106); POTASSIUM SERUM 4.3 MMOL/L (3.5-5.1); SODIUM LEVEL 136 MMOL/L (136-145); TOTAL PROTEIN 5.7 G/DL (5.7-8.2)
[2024-06-26] MEDS: ONDANSETRON 4MG 2ML VIAL IV ONE (23:43)
[2024-06-26] MEDS: MORPHINE 4 MG/ML 1ML VIAL IV ONE (23:43)
[2024-06-27] MEDS: GASTROGRAFIN SOLUTION 30ML PO SCH (00:35)
[2024-06-27] MEDS ORDERED: ISOVUE-370 76% 100ML VIAL As Ordered ONE (02:08)
[2024-06-27] MEDS ORDERED: LEVO1TAB40 PO (03:14)
[2024-06-27] MEDS ORDERED: OXYC-517 PO (03:34)
[2024-06-27] MEDS ORDERED: COLA100C5 PO (03:34)
[2024-06-27] MEDS: PERCOCET 5MG/325MG TAB PO ONE (03:44)
[2024-06-27] MEDS: LevoFLOXacin IV 750 MG in IV 1 EA IV ONE (03:49)
[2024-06-27 05:03] VITALS: BP 136/60; TEMP 98.6; O2SAT 98
== END 2024-06-27 05:08 | disposition home or self-care (01) ==
LOC: M ED 20:51
DX: R10.9 Unspecified abdominal pain (principal); R50.9 Fever, unspecified; E11.9 Type 2 diabetes mellitus without complications; I10 Essential (primary) hypertension; F43.10 Post-traumatic stress disorder, unspecified; E78.5 Hyperlipidemia, unspecified; Z79.1 Long term (current) use of non-steroidal anti-inflammatories (NSAID); Z79.84 Long term (current) use of oral hypoglycemic drugs; Z79.899 Other long term (current) drug therapy
CPT/HCPCS: 71046; 74177; 80048; 80076; 81001; 83605; 83690; 85025; 87040; 87486; 87581; 87633; 87798; 93041; 96365; 96374; 99285; J1956; J2405; Q9963; Q9967